=== PATIENT | female | born 1940 | race Caucasian/White ===

== ENCOUNTER → 2018-04-29 | Outpatient (CLI) | payer MEDICARE, OTHER ==
--- NOTE | 2018-04-30 13:06 | RADIOLOGY IMAGING REPORT ---
FACILITY: [facility] [place] PATIENT NAME: FRANCK GIL : [id number] MR: [id number] V: [id number] EXAM DATE: [id number] ORDERING PHYSICIAN: ALIDA MOCK TECHNOLOGIST: Graciela Foster This report includes an Addendum and supersedes previous reports for this exam. PROCEDURE:BILATERAL DIGITAL SCREENING MAMMOGRAM WITH CAD ASSISTED INTERPRETATION & 3D TOMOSYNTHESIS COMPARISON:Prior mammograms 04/22/17, 04/04/16, 02/15/14, 02/12/13, 02/15/12. INDICATIONS:SCREENING FINDINGS: Moderately heterogeneous fibroglandular tissue is seen throughout the breasts. The parenchymal pattern has remained stable allowing for difference in mammographic technique & patient positioning. There is an area of architectural distortion with macrocalcifications in the upper outer quadrant of the Left breast in location of previous lumpectomy. There is a small focal area of increased density in the lateral portion of the Right breast on the Right CC view in the middle 1/3 appears slightly more prominent when compared to prior study and Spot compression view is recommended. DIAGNOSTIC CATEGORY 0--INCOMPLETE: NEED ADDITIONAL IMAGING EVALUATION. RECOMMENDATIONS: ADDITIONAL MAMMOGRAPHIC VIEWS REQUIRED: LEFT BREAST. IMPRESSION: BIRADS 0: Incomplete. Additional view of the Right breast recommended as described. Dictated by: Park Dinero M.D. on 04/29/2018 at 10:57 Transcribed by: HEATHER on 04/29/2018 at 11:07 Approved by: Park Dinero M.D. on 04/30/2018 at 13:05 [facility] ADDENDUM: FINDINGS: DIAGNOSTIC CATEGORY 0--INCOMPLETE: NEED ADDITIONAL IMAGING EVALUATION. RECOMMENDATIONS: ADDITIONAL MAMMOGRAPHIC VIEWS REQUIRED: RIGHT BREAST. IMPRESSION: BIRADS 0: Incomplete. Dictated by: Park Dinero M.D. on 04/30/2018 at 15:10 Transcribed by: BANG on 05/01/2018 at 9:34 Approved by: Park Dinero M.D. on 05/01/2018 at 9:36 [facility]
== END ==
LOC: MAMO 01:48
PROVIDERS: ATTEND Physician Assistant
DX: Z12.31 Encounter for screening mammogram for malignant neoplasm of breast (principal); R92.8 Other abnormal and inconclusive findings on diagnostic imaging of breast
CPT/HCPCS: 77063; 77067

== ENCOUNTER → 2018-05-08 | Outpatient (CLI) | payer MEDICARE, OTHER ==
--- NOTE | 2018-05-12 09:34 | RADIOLOGY IMAGING REPORT ---
FACILITY: PATIENT NAME: FRANCK GIL : [id number] MR: [id number] V: [id number] EXAM DATE: [id number] ORDERING PHYSICIAN: ALIDA MOCK TECHNOLOGIST: Florina Willams PROCEDURE:LEFT DIGITAL DIAGNOSTIC MAMMOGRAM WITH CAD ASSISTED INTERPRETATION & 3D TOMOSYNTHESIS COMPARISON:Prior mammograms 04/29/18, 04/22/17, 04/04/16, 02/15/14, 02/12/13, 02/15/12. INDICATIONS:SCREENING FINDINGS: The patient returns for a Spot compression view in the Right CC projection and a Right mediolateral view both obtained with 3D breast Tomosynthesis. The small focal area of increased density in the lateral portion of the Right breast on the recent Right CC view appeared compressible and appeared similar to the prior studies on the Tomographic images. There is no evidence of malignant appearing mass, malignant appearing calcifications or other secondary sign of malignancy in the Right breast. DIAGNOSTIC CATEGORY 2--BENIGN FINDING. RECOMMENDATIONS: ROUTINE MAMMOGRAM AND CLINICAL EVALUATION. IMPRESSION: BIRADS 2: Benign finding. No significant abnormality is seen. Dictated by: Park Dinero M.D. on 05/08/2018 at 15:35 Transcribed by: HEATHER on 05/08/2018 at 15:43 Approved by: Park Dinero M.D. on 05/12/2018 at 9:33 [facility]
== END ==
LOC: MAMO 02:26
PROVIDERS: ATTEND Physician Assistant
DX: R92.8 Other abnormal and inconclusive findings on diagnostic imaging of breast (principal)
CPT/HCPCS: 77061; 77065

== ENCOUNTER 2018-06-05 00:39 | Day surgery (SDC) | payer MEDICARE, OTHER ==
[2018-06-05] VITALS (7 sets, daily range): BP systolic 97–163; BP diastolic 57–91
[~2018-06-05] VITALS: Ht 162.6 cm; Wt 84.8 kg
[~2018-06-05 00:39] MED LIST: ASPI81TA94 PO; CALC500T6 PO; CHOL100058 PO; HYDR-2966 PO; LOSA50TA72 PO; METO-233 PO; MULT1CAP59 PO; SIMV-49 PO
[2018-06-05] MEDS ORDERED: NORMOSOL R SOLN(*) 1000 ML BAG 1,000 ML IV PRN (07:55)
[2018-06-05] MEDS ORDERED: LIDOCAINE/SOD BICARB 8.4% SYR ID ONE (07:55)
[2018-06-05] MEDS ORDERED: PROPOFOL EMUL(*) 10MG/ML 20 ML 40 ML ONE (10:40)
== END 2018-06-05 09:59 | disposition home or self-care (01) ==
LOC: OR 00:39
PROVIDERS: ATTEND Family Medicine
DX: Z12.11 Encounter for screening for malignant neoplasm of colon (principal); I10 Essential (primary) hypertension; Z86.010 Personal history of colon polyps; Z85.3 Personal history of malignant neoplasm of breast; Z90.710 Acquired absence of both cervix and uterus; Z96.643 Presence of artificial hip joint, bilateral
CPT/HCPCS: 00812; G0121; J2704

== ENCOUNTER → 2019-05-21 | Outpatient (CLI) | payer MEDICARE, OTHER ==
[~2019-05-21] MED LIST changes: -LOSA50TA72 PO; +LOSA50TA80 PO
--- NOTE | 2019-05-22 13:58 | RADIOLOGY IMAGING REPORT ---
FACILITY: [facility] PATIENT NAME: FRANCK GIL : [id number] MR: [id number] V: [id number] EXAM DATE: [id number] ORDERING PHYSICIAN: ALIDA MOCK TECHNOLOGIST: Graciela Foster PROCEDURE: BILATERAL DIGITAL SCREENING MAMMOGRAM WITH CAD ASSISTED INTERPRETATION & 3D TOMOSYNTHESIS REASON FOR STUDY: Screening. FAMILY HISTORY OF BREAST CANCER: Mother & sister & self. BREAST PROCEDURES/TREATMENTS: A benign stereotactic biopsy of the Left breast & a malignant lumpectomy of the Left breast with lymph node dissection. Radiation therapy and chemotherapy. COMPARISON: 05/08/18, 04/29/18, 04/22/17, 04/04/16, 02/15/14, 02/12/13. VIEWS OBTAINED: Bilateral 2D & 3D full field CC & MLO projections. BREAST DENSITY: The breasts are heterogeneously dense which can obscure small masses. MAMMOGRAM FINDINGS: In the upper portion of the Right breast in the Right MLO view in the middle depth there is an area of architectural distortion best appreciated on Tomographic slice 18. This is not as well seen on the CC view although maybe just posterior to mid nipple line on Tomographic slice 39. This appears to have been present on prior studies dating back to 2012 and may represent a radial scar. There is an area of architectural distortion and course calcifications in the upper outer quadrant of the Left breast from the previous lumpectomy site. There is also a biopsy clip in this location. IMPRESSION: BIRADS 2: Benign finding. DIAGNOSTIC CATEGORY 2--BENIGN FINDING. RECOMMENDATIONS: ROUTINE MAMMOGRAM AND CLINICAL EVALUATION. Dictated by: Park Dinero M.D. on 05/21/2019 at 11:35 Transcribed by: HEATHER on 05/22/2019 at 13:22 Approved by: Park Dinero M.D. on 05/22/2019 at 13:52 [facility]
== END ==
LOC: MAMO 02:04
PROVIDERS: ATTEND Physician Assistant
DX: Z12.31 Encounter for screening mammogram for malignant neoplasm of breast (principal)
CPT/HCPCS: 77063; 77067